=== PATIENT | female | born 1975 | race Caucasian/White ===

== ENCOUNTER → 2019-02-12 07:47 | Outpatient (CLI) | payer OTHER, SELFPAY ==
--- NOTE | 2019-02-12 | DI.MG.S_ITS ---
BILATERAL DIGITAL SCREENING MAMMOGRAM 3D/2D WITH CAD: 02/12/2019 CLINICAL: Routine screening. Family history of breast cancer. Comparison is made to exams dated: 03/03/2017 mammogram, 02/28/2016 mammogram, and 02/14/2016 mammogram - [facility]. The tissue of both breasts is heterogeneously dense. This may lower the sensitivity of mammography. Current study was also evaluated with a Computer Aided Detection (CAD) system. No significant masses, calcifications, or other findings are seen in either breast. There has been no significant interval change. IMPRESSION: NEGATIVE There is no mammographic evidence of malignancy. A 1 year screening mammogram is recommended. This exam was interpreted at Station ID: [id number]. NOTE: For mammograms, a report in lay terms will be sent to the patient. Approximately 15% of breast malignancies will not be visualized mammographically. In the management of a palpable breast mass, a negative mammogram must not discourage biopsy of a clinically suspicious lesion. Electronically Signed By: Annabelle bernal/greyson:02/12/2019 10:00:13 copy to: Jada Ortega letter sent: Normal Exam ACR BI-RADS Category 1: Negative 3341F
== END ==
PROVIDERS: Family Provider Family Medicine; PCP Family Medicine; Referring Provider Nurse Practitioner Family; Visit Provider Family Medicine
DX: Z12.31 Encounter for screening mammogram for malignant neoplasm of breast (principal); Z80.3 Family history of malignant neoplasm of breast
CPT/HCPCS: 77063; 77067

== ENCOUNTER → 2020-03-04 10:15 | Outpatient (CLI) | payer OTHER, SELFPAY ==
--- NOTE | 2020-03-04 | DI.MG.S_ITS ---
BILATERAL DIGITAL SCREENING MAMMOGRAM 3D/2D WITH CAD: 03/04/2020 CLINICAL: Routine screening. Family history of breast cancer. Comparison is made to exams dated: 02/12/2019 mammogram, 03/03/2017 mammogram, and 02/14/2016 mammogram - [facility]. The tissue of both breasts is extremely dense, which lowers the sensitivity of mammography. Current study was also evaluated with a Computer Aided Detection (CAD) system. There are grouped fine calcifications in the left breast posterior depth medial region seen on the craniocaudal view only. These are increased in number. No other significant masses, calcifications, or other findings are seen in either breast. IMPRESSION: INCOMPLETE: NEEDS ADDITIONAL IMAGING EVALUATION The grouped fine calcifications in the left breast are indeterminate. Spot magnification and additional views are recommended. This exam was interpreted at Station ID: [id number]. NOTE: For mammograms, a report in lay terms will be sent to the patient. Approximately 15% of breast malignancies will not be visualized mammographically. In the management of a palpable breast mass, a negative mammogram must not discourage biopsy of a clinically suspicious lesion. Electronically Signed By: Jinny mishra/greyson:03/06/2020 09:37:16 letter sent: Additional Imaging Needed ACR BI-RADS Category 0: Incomplete 3340F
== END ==
PROVIDERS: Family Provider Family Medicine; PCP Student in an Organized Health Care Education/Training Program; Referring Provider Nurse Practitioner Family; Visit Provider Nurse Practitioner Family
DX: Z12.31 Encounter for screening mammogram for malignant neoplasm of breast (principal); Z80.3 Family history of malignant neoplasm of breast
CPT/HCPCS: 77063; 77067

== ENCOUNTER → 2021-04-21 12:55 | Outpatient (CLI) | payer OTHER, SELFPAY ==
--- NOTE | 2021-04-21 12:59 | DI.MG.S_ITS ---
BILATERAL DIGITAL SCREENING MAMMOGRAM 3D/2D WITH CAD: 04/21/2021 CLINICAL: Routine screening. Family history of breast cancer. Comparison is made to exams dated: 03/16/2020 mammogram - [facility], 03/04/2020 mammogram, and 02/12/2019 mammogram - [facility]. The tissue of both breasts is extremely dense, which lowers the sensitivity of mammography. Current study was also evaluated with a Computer Aided Detection (CAD) system. No significant masses, calcifications, or other findings are seen in either breast. There has been no significant interval change. IMPRESSION: NEGATIVE There is no mammographic evidence of malignancy. A 1 year screening mammogram is recommended. This exam was interpreted at Station ID: [id number]. NOTE: For mammograms, a report in lay terms will be sent to the patient. Approximately 15% of breast malignancies will not be visualized mammographically. In the management of a palpable breast mass, a negative mammogram must not discourage biopsy of a clinically suspicious lesion. Electronically Signed By: Fran Chu acr/greyson:04/23/2021 08:04:04 letter sent: Normal Exam ACR BI-RADS Category 1: Negative 3341F
== END ==
PROVIDERS: PCP Student in an Organized Health Care Education/Training Program; Referring Provider Student in an Organized Health Care Education/Training Program; Visit Provider Student in an Organized Health Care Education/Training Program
DX: Z12.31 Encounter for screening mammogram for malignant neoplasm of breast (principal); Z80.3 Family history of malignant neoplasm of breast
CPT/HCPCS: 77063; 77067

== ENCOUNTER → 2022-03-11 07:40 | Outpatient (CLI) | payer OTHER, SELFPAY ==
[2022-03-11 08:29] LABS: Add Manual Diff / Slide Review NO; Basophils Absolute Auto 0 /uL (0-100); Basophils Percent Auto 1.4 % (0-2); Eosinophils Absolute Auto 100 /uL (0-450); Eosinophils Percent Auto 2.6 % (2-4); Hematocrit 39.5 % (36-46); Hemoglobin 13.7 g/dL (12.0-16.0); Lymphocytes Absolute Auto 1100 /uL (1100-4500); Lymphocytes Percent Auto 32.4 % (25-40); Mean Corpuscular HGB Conc 34.8 % (30-36); Mean Corpuscular Hemoglobin 32.5 PG (26-34); Mean Corpuscular Volume 93.6 fL (80-100); Monocytes Absolute Auto 400 /uL (0-900); Monocytes Percent Auto 11.2 % (3-14); Neutrophils Absolute Auto 1700 /uL (1500-7000); Neutrophils Percent Auto 52.4 % (50-75); Platelet Count 207 X10^3/uL (150-400); Red Blood Cell Count 4.22 X10^6/uL (4.0-5.2); Red Cell Distribution Width 13.9 % (11.6-14.8); White Blood Cell Count 3.3 X10^3/uL (4.5-11.0)
[2022-03-11 08:43] LABS: Alanine Aminotransferase 12 IU/L (<35); Albumin 4.4 g/dL (3.5-5.0); Albumin Globulin Ratio 1.5 (1.0-2.8); Alkaline Phosphatase 60 U/L (38-126); Aspartate Aminotransferase 20 IU/L (14-36); BUN Creatinine Ratio 16.7 (6-22); Bilirubin Total 0.8 mg/dL (0.2-1.3); Blood Urea Nitrogen 12 mg/dL (7-17); Calcium 8.8 mg/dL (8.4-10.2); Carbon Dioxide 21 mmol/L (22-32); Chloride 105 mmol/L (98-107); Cholesterol 158 mg/dL (140-199); Estimated Glomerular Filt Rate > 60 mL/min (>60); Globulin 2.9 g/dL (1.7-4.1); Glucose 98 mg/dL (70-100); HDL Cholesterol 82 mg/dL (40-60); HEMOLYSIS < 15 (0-50); LDL Cholesterol Calculated 54 mg/dL (<100); Potassium 4.1 mmol/L (3.4-5.1); Sodium 136 mmol/L (137-145); Total Protein 7.3 g/dL (6.3-8.2); Triglycerides 108 mg/dL (35-150)
[2022-03-11 09:11] LABS: Thyroid Stimulating Hormone 1.58 uIU/mL (0.47-4.68)
[2022-03-11 09:39] LABS: Hemoglobin A1C% w Est Avg Glu 5.2 % (4.0-6.0)
== END ==
PROVIDERS: PCP Family Medicine; Referring Provider Family Medicine; Visit Provider Family Medicine
DX: Z00.00 Encounter for general adult medical examination without abnormal findings (principal); E03.9 Hypothyroidism, unspecified
CPT/HCPCS: 36415; 80053; 80061; 83036; 84443; 85025

== ENCOUNTER → 2022-04-27 08:09 | Outpatient (CLI) | payer OTHER, SELFPAY ==
--- NOTE | 2022-04-27 08:11 | DI.MG.S_ITS ---
BILATERAL DIGITAL SCREENING MAMMOGRAM 3D/2D WITH CAD: 04/27/2022 CLINICAL: Routine screening. Comparison is made to exams dated: 04/21/2021 mammogram - [facility], 03/16/2020 mammogram - [facility], 03/04/2020 mammogram, and 02/12/2019 mammogram - [facility]. Both breasts are extremely dense, which lowers the sensitivity of mammography (category d />75% glandular tissue). Current study was also evaluated with a Computer Aided Detection (CAD) system. No significant masses, calcifications, or other findings are seen in either breast. There has been no significant interval change. IMPRESSION: NEGATIVE There is no mammographic evidence of malignancy. A 1 year screening mammogram is recommended. Based on Tyrer-Cuzick model (a risk assessment model), the patient's lifetime risk is 22.2% and her 10 year risk is 4.5%. If a patient has an elevated risk, a more comprehensive evaluation should be considered and/or a referral to a genetic counselor. The [place] [employer], [employer], and NCCN Guidelines advise the consideration of Breast MRI as an adjunct to screening mammography in patients whose Lifetime risk to develop breast cancer is 20% or higher. This exam was interpreted at Station ID: [id number]. NOTE: For mammograms, a report in lay terms will be sent to the patient. Approximately 15% of breast malignancies will not be visualized mammographically. In the management of a palpable breast mass, a negative mammogram must not discourage biopsy of a clinically suspicious lesion. Electronically Signed By: Canelo del real/greyson:04/29/2022 07:55:57 letter sent: Normal Exam ACR BI-RADS Category 1: Negative 3341F
== END ==
PROVIDERS: PCP Family Medicine; Referring Provider Family Medicine; Visit Provider Family Medicine
DX: Z12.31 Encounter for screening mammogram for malignant neoplasm of breast (principal)
CPT/HCPCS: 77063; 77067

== ENCOUNTER → 2022-05-22 15:53 | Outpatient (CLI) | payer OTHER, SELFPAY ==
[2022-05-22 17:20] LABS: COVID19 -Nasal RAPID Negative (Negative)
== END ==
PROVIDERS: PCP Family Medicine; Visit Provider Surgery
DX: Z01.812 Encounter for preprocedural laboratory examination (principal); Z20.822 Contact with and (suspected) exposure to COVID-19
CPT/HCPCS: 87635; C9803

== ENCOUNTER 2022-05-23 11:39 | Day surgery (SDC) | payer OTHER, SELFPAY ==
[2022-05-23 11:53] VITALS: BP 127/89; PULSE 75; RESP 16; TEMP 36.8; O2SAT 99; BMI 24.2
[2022-05-23] MEDS: LACTATED RINGERS 1,000 ML 84 ML IV (12:08)
--- NOTE | 2022-05-23 13:31 | PM.HP.1 ---
History of Present Illness History of Present Illness Date Patient Seen: 05/23/22 Time Patient Seen: 13:31 Chief complaint: SCREENING COLONOSCOPY Narrative: Shelly is 46-year-old woman who is here for colonoscopy for colon cancer screening. She has never had a colonoscopy before. She has no known family history of colon cancer Patient History Family & Social History Social History: household members spouse Tobacco & Substance use: Smoking Status Never smoker alcohol intake frequency a few times a week Substance Use Type does not use Meds Home Medications and Allergies Home Medications Medication Instructions Recorded Confirmed Type levothyroxine 50 mcg tablet 50 mcg PO DAILY 05/23/22 05/23/22 History Allergies Allergy/AdvReac Type Severity Reaction Status Date / Time No Known Drug Allergies Allergy Verified 05/23/22 12:03 Exam Vital Signs (past 8 hours): - 05/23/22 11:53 Temperature 98.2 F Pulse Rate 75 Respiratory Rate 16 Blood Pressure 127/89 Pulse Oximetry 99 Oxygen Delivery Method Room Air Oxygen Delivery Method Room Air Const General: healthy appearing Assessment & Plan Assessment and plan (1) Colon cancer screening: Status: Acute Plan 46-year-old otherwise healthy woman here for colonoscopy for colon cancer screening. We reviewed the risks and benefits and she would like to proceed. Time Spent With Patient Critical Care time: I spent a total of [] minutes of critical care time on this patient's care today; this time is exclusive of procedural time.
[2022-05-23] MEDS: fentaNYL 100 MCG/2 ML INJ 150 MCG IV (14:02)
[2022-05-23] MEDS: MIDAZOLAM 5 MG/5 ML VIAL 6 MG IV (14:04)
--- NOTE | 2022-05-23 14:05 | PM.OP.COLON ---
Operative Date/Time/Diagnoses Date of procedure: 05/23/22 Time of procedure: 14:05 Pre-op diagnosis: Colon cancer screening Post-op diagnosis: same Procedure & Clinicians Study performed: Colonoscopy Same procedure as scheduled: Yes Surgeon: Abelardo Silverman Procedure Notes Procedure in detail: Surgeon: Abelardo Silverman MD Procedure: The patient was brought to the endoscopy suite, placed in left lateral decubitus position. The patient was connected to monitoring devices. A time-out was performed. Sedation was administered. Once the patient was adequately sedated, a digital rectal exam was performed and was normal. The scope was then inserted and advanced to the cecum where the appendiceal orifice was identified and photographed. The scope was then slowly withdrawn over greater than 6 minutes. The mucosa was thoroughly inspected. No polyps or other lesions were found. The scope was retroflexed in the rectum. No abnormality was noted. The scope was straightened and removed. The patient was awakened and brought to recovery. Versed: 6 mg Fentanyl: 150 mcg EBL: 0 Findings: Normal colon Scope withdrawal time: 11 Sedation minutes: 25 Post-procedure Recommendations: Colonoscopy in 10 years Disposition: PACU
[2022-05-23 14:09] VITALS: BP 109/76; PULSE 62; RESP 16; TEMP 36.2; O2SAT 100
[2022-05-23 14:14] VITALS: BP 104/70; PULSE 64; RESP 18; O2SAT 100
[2022-05-23 14:19] VITALS: BP 107/70; PULSE 82; RESP 16; O2SAT 98
[2022-05-23 14:24] VITALS: BP 121/85; PULSE 67; RESP 111; TEMP 36.6; O2SAT 98
== END 2022-05-23 14:39 | disposition home or self-care (01) ==
PROVIDERS: PCP Family Medicine; Referring Provider Surgery; Visit Provider Surgery
PROC: 0DJD8ZZ Inspection of Lower Intestinal Tract, Via Natural or Artificial Opening Endoscopic (ICD-10-PCS; CPT 45378; principal; 2022-05-23 12:45)
DX: Z12.11 Encounter for screening for malignant neoplasm of colon (principal)
CPT/HCPCS: 45378; 99152; 99153; J2250; J3010

== ENCOUNTER → 2022-11-14 16:11 | Outpatient (CLI) | payer OTHER, SELFPAY ==
--- NOTE | 2022-11-14 16:12 | DI.US.S_ITS ---
PROCEDURE: US PELVIC COMPLETE INDICATIONS: DYSMENORRHEA, UNSPECIFIED TECHNIQUE: Real-time scanning was performed of the pelvic organs, with image documentation. Additional endovaginal scanning was necessary due to incomplete visualization of the adnexal and endometrial structures by transabdominal scanning. COMPARISON: None. FINDINGS: Uterus: Uterus is anteverted and normal in size at 9.2 x 5.1 x 4.2 cm. The myometrium is heterogeneous. The endometrium measures 13 mm combined thickness. No fibroids. Small nabothian cysts. Ovaries: The right ovary measures 2.9 x 2.2 x 2.1 cm, with a calculated ovarian volume of 7 cc. The left ovary measures 1.7 x 1.7 x 1.1 cm, with a calculated ovarian volume of 2 cc. The ovaries have a normal sonographic appearance. Less than 12 follicles can be seen in each ovary. No adnexal masses are seen. Simple right ovarian cyst measuring 3.1 cm. Small hypoechoic left ovarian cyst measuring 1.7 x 1 x 1.4 cm. Other: No pathologic free abdominal or pelvic fluid. IMPRESSION: 1. Endometrium measures 13 mm. 2. No fibroids. 3. Small left hypoechoic cyst measuring 1.7 cm. Mildly complex. Recommend short-term follow-up pelvic ultrasound in 6-12 weeks. 4. Simple right ovarian cyst measuring 3.1 cm. We strive to produce accurate, complete, and clear reports of imaging services. To assist us in improving patient care, this report was composed using standard report templates and voice recognition software. Therefore, it may contain abnormal punctuation, insertions and/or omissions. Occasional wrong-word or sound-alike substitutions may occur. Though we review the report and make efforts to correct it, we do recommend that the report be read carefully in proper context to recognize any text inaccuracies. Dictated by: Adarsh Hernández M.D. on 11/15/2022 at 9:32 Approved by: Adarsh Hernández M.D. on 11/15/2022 at 9:39
== END ==
PROVIDERS: PCP Family Medicine; Referring Provider Internal Medicine; Visit Provider Internal Medicine
DX: N94.6 Dysmenorrhea, unspecified (principal); N83.291 Other ovarian cyst, right side; N83.202 Unspecified ovarian cyst, left side
CPT/HCPCS: 76830; 76856

== ENCOUNTER → 2023-02-17 08:12 | Outpatient (CLI) | payer OTHER, SELFPAY ==
--- NOTE | 2023-02-17 | DI.US.S_ITS ---
PROCEDURE: US PELVIC COMPLETE INDICATIONS: BILATERAL OVARIAN CYST 6-12 WEEK FOLLOW UP TECHNIQUE: Real-time scanning was performed of the pelvic organs, with image documentation. Additional endovaginal scanning was necessary due to incomplete visualization of the adnexal and endometrial structures by transabdominal scanning. COMPARISON: [facility], US, US PELVIC COMPLETE, 11/14/2022, 17:28. FINDINGS: Uterus: Uterus is anteverted and normal in size at 8.8 x 4.6 x 4.1 cm. The myometrium is homogeneous. The endometrium measures 2.8 mm combined thickness. Ovaries: The right ovary measures 2.0 x 1.4 x 1.0 cm, with a calculated ovarian volume of 1.5 cc. The left ovary measures 2.4 x 2.0 x 0.8 cm, with a calculated ovarian volume of 1 point cc. The ovaries have a normal sonographic appearance. There is a dominant follicle in the right ovary measuring 1 cm. Less than 12 follicles can be seen in each ovary. No adnexal masses are seen. Other: No pathologic free abdominal or pelvic fluid. IMPRESSION: 1. Ovarian cysts are resolved. 2. Normal uterus. We strive to produce accurate, complete, and clear reports of imaging services. To assist us in improving patient care, this report was composed using standard report templates and voice recognition software. Therefore, it may contain abnormal punctuation, insertions and/or omissions. Occasional wrong-word or sound-alike substitutions may occur. Though we review the report and make efforts to correct it, we do recommend that the report be read carefully in proper context to recognize any text inaccuracies. Dictated by: Judy Burden M.D. on 02/17/2023 at 12:24 Approved by: Judy Burden M.D. on 02/17/2023 at 12:27
== END ==
PROVIDERS: PCP Family Medicine; Referring Provider Internal Medicine; Visit Provider Internal Medicine
DX: N83.202 Unspecified ovarian cyst, left side (principal); N83.201 Unspecified ovarian cyst, right side
CPT/HCPCS: 76830; 76856

== ENCOUNTER → 2023-05-06 07:58 | Outpatient (CLI) | payer OTHER, SELFPAY ==
--- NOTE | 2023-05-06 | DI.MG.S_ITS ---
BILATERAL DIGITAL SCREENING MAMMOGRAM 3D/2D WITH CAD: 05/06/2023 CLINICAL: Routine screening. Family history of breast cancer. Comparison is made to exams dated: 04/27/2022 mammogram, 04/21/2021 mammogram, and 03/04/2020 mammogram - [facility]. Both breasts are extremely dense, which lowers the sensitivity of mammography (category d />75% glandular tissue). Current study was also evaluated with a Computer Aided Detection (CAD) system. There is a biopsy clip in the left breast. No significant masses, calcifications, or other findings are seen in either breast. There has been no significant interval change. IMPRESSION: NEGATIVE There is no mammographic evidence of malignancy. A 1 year screening mammogram is recommended. Based on Tyrer-Cuzick model (a risk assessment model), the patient's lifetime risk is 22.6% and her 10 year risk is 4.9%. If a patient has an elevated risk, a more comprehensive evaluation should be considered and/or a referral to a genetic counselor. The [employer], [employer], and NCCN Guidelines advise the consideration of Breast MRI as an adjunct to screening mammography in patients whose Lifetime risk to develop breast cancer is 20% or higher. This exam was interpreted at Station ID: [id number]. NOTE: For mammograms, a report in lay terms will be sent to the patient. Approximately 15% of breast malignancies will not be visualized mammographically. In the management of a palpable breast mass, a negative mammogram must not discourage biopsy of a clinically suspicious lesion. Electronically Signed By: Jinny mishra/greyson:05/06/2023 13:24:38 letter sent: Normal Exam ACR BI-RADS Category 1: Negative 3341F
== END ==
PROVIDERS: PCP Family Medicine; Referring Provider Family Medicine; Visit Provider Family Medicine
DX: Z12.31 Encounter for screening mammogram for malignant neoplasm of breast (principal); Z80.3 Family history of malignant neoplasm of breast
CPT/HCPCS: 77063; 77067

== ENCOUNTER → 2024-05-08 08:06 | Outpatient (CLI) | payer OTHER, SELFPAY ==
--- NOTE | 2024-05-08 | DI.MG.S_ITS ---
BILATERAL DIGITAL SCREENING MAMMOGRAM 3D/2D WITH CAD: 05/08/2024 CLINICAL: Routine screening. Family history of breast cancer. Comparison is made to exams dated: 05/06/2023 mammogram, 04/27/2022 mammogram, and 04/21/2021 mammogram - [facility]. The breasts are extremely dense, which lowers the sensitivity of mammography (category d />75% glandular tissue). Current study was also evaluated with a Computer Aided Detection (CAD) system. There is a biopsy clip in the left breast. No significant masses, calcifications, or other findings are seen in either breast. There has been no significant interval change. IMPRESSION: BENIGN There is no mammographic evidence of malignancy. A 1 year screening mammogram is recommended. Based on Tyrer-Cuzick model (a risk assessment model), the patient's lifetime risk is 24.4% and her 10 year risk is 5.6%. If a patient has an elevated risk, a more comprehensive evaluation should be considered and/or a referral to a genetic counselor. The [place] [employer], [place], and NCCN Guidelines advise the consideration of Breast MRI as an adjunct to screening mammography in patients whose Lifetime risk to develop breast cancer is 20% or higher. This exam was interpreted at Station ID: [id number]. NOTE: For mammograms, a report in lay terms will be sent to the patient. Approximately 15% of breast malignancies will not be visualized mammographically. In the management of a palpable breast mass, a negative mammogram must not discourage biopsy of a clinically suspicious lesion. Electronically Signed By: Isis Ttae M.D., Ph.D. luis/greyson:05/11/2024 00:42:49 letter sent: Normal Exam ACR BI-RADS Category 2: Benign
== END ==
PROVIDERS: PCP Family Medicine; Referring Provider Family Medicine; Visit Provider Family Medicine
DX: Z12.31 Encounter for screening mammogram for malignant neoplasm of breast (principal); Z80.3 Family history of malignant neoplasm of breast; R92.343 Mammographic extreme density, bilateral breasts
CPT/HCPCS: 77063; 77067

== ENCOUNTER → 2024-07-11 13:58 | Outpatient (CLI) | payer OTHER, SELFPAY ==
[2024-07-11 14:56] LABS: COVID-19 CEPHEID 4-PLEX PCR Negative (Negative); Influenza A - CEPHEID Flu A NEGATIVE (NEGATIVE); Influenza B - CEPHEID Flu B NEGATIVE (NEGATIVE); Respiratory Syncytial Virus Negative (Negative)
== END ==
PROVIDERS: PCP Family Medicine; Visit Provider Nurse Practitioner Family
DX: R05.9 Cough, unspecified (principal); R50.9 Fever, unspecified; R53.81 Other malaise; R53.83 Other fatigue
CPT/HCPCS: 0241U

== ENCOUNTER → 2024-07-11 14:24 | Outpatient (CLI) | payer OTHER, SELFPAY ==
--- NOTE | 2024-07-11 14:26 | DI.RAD.S_ITS ---
PROCEDURE: XR CHEST 2V INDICATIONS: Cough TECHNIQUE: 2 views of the chest were acquired. COMPARISON: None. FINDINGS: Surgical changes and devices: None. Lungs and pleura: Lungs are clear. No pleural effusions or pneumothorax. Mediastinum: Mediastinal contours are normal. Heart size is normal. Bones and chest wall: No suspicious bony abnormalities. Soft tissues appear unremarkable. IMPRESSION: No focal infiltrates are seen. No acute cardiopulmonary abnormality is seen. Dictated by: Brandon Reyes M.D. on 07/11/2024 at 14:48 Approved by: Brandon Reyes M.D. on 07/11/2024 at 14:49
== END ==
PROVIDERS: PCP Family Medicine; Referring Provider Nurse Practitioner Family; Visit Provider Nurse Practitioner Family
DX: R05.9 Cough, unspecified (principal); R50.9 Fever, unspecified; R53.81 Other malaise; R53.83 Other fatigue
CPT/HCPCS: 0241U; 71046

== ENCOUNTER → 2025-05-21 07:59 | Outpatient (CLI) | payer OTHER, SELFPAY ==
--- NOTE | 2025-05-21 08:00 | DI.MG.S_ITS ---
MM screening mammo BI: 05/21/2025. BI-RADS: 2 CLINICAL: 49-year old female for bilateral screening mammogram. Tyrer-Cuzick lifetime risk of 26.6%. No personal or first-degree family history of breast cancer. Current reported family history of breast cancer: paternal aunt and paternal aunt's daughter. The patient had a prior left breast biopsy. PRIOR EXAMS 05/08/2024, 05/06/2023, 04/27/2022, 04/21/2021. MAMMOGRAPHY TECHNIQUE: 2D and 3D (tomosynthesis) digital mammographic views obtained, with additional images as needed for full coverage. Current study was also evaluated with a Computer Aided Detection (CAD) system. DENSITY D. The breasts are extremely dense, which lowers the sensitivity of mammography. MAMMOGRAPHY FINDINGS Right: No suspicious mass, asymmetry, microcalcification, or other abnormality seen. Left: Biopsy marker present on the left. There are no suspicious masses, calcifications, or other findings in the breast. IMPRESSION: Right * No evidence of malignancy. Left * No evidence of malignancy with benign findings. RECOMMENDATIONS Bilateral * According to the Tyrer-Cuzick Risk Assessment Model, based on the information provided your patient has a greater than 20% lifetime risk for developing breast cancer. Consider supplemental screening with breast MRI and participation in a high risk screening program. * Annual screening mammography. OVERALL ASSESSMENT CATEGORY BI-RADS-2: Benign. The [employer] recommends annual screening mammography beginning at age 40 for women with average risk of breast cancer. ELECTRONICALLY SIGNED: Isis Tate M.D. on 05/24/2025 at 10:27:05 PM PT Interpreting Station ID: [id number]
== END ==
PROVIDERS: PCP Family Medicine; Referring Provider Registered Nurse; Visit Provider Registered Nurse
DX: Z12.31 Encounter for screening mammogram for malignant neoplasm of breast (principal); R92.333 Mammographic heterogeneous density, bilateral breasts; Z80.3 Family history of malignant neoplasm of breast
CPT/HCPCS: 77063; 77067